=== PATIENT | male | born 1960 | race Caucasian/White ===

== ENCOUNTER 2024-11-18 10:40 | Emergency (ER) | payer BC ==
[~2024-11-18] VITALS: Ht 188 cm; Wt 114.3 kg
[2024-11-18 11:49] VITALS: BP 150/99; TEMP 98.2; O2SAT 98
== END 2024-11-18 11:49 | disposition home or self-care (01) ==
LOC: ER 10:58
DX: F41.9 Anxiety disorder, unspecified (principal); R00.2 Palpitations; G47.00 Insomnia, unspecified; Z60.2 Problems related to living alone